=== PATIENT | male | born 1985 | race Caucasian/White ===

== ENCOUNTER 2016-11-19 21:26 | Emergency (ER) | payer SELFPAY ==
[2016-11-19 23:30] VITALS: BP 128/85
== END 2016-11-19 23:30 | disposition home or self-care (01) ==
LOC: ED 21:26
DX: J20.9 Acute bronchitis, unspecified (principal); R07.89 Other chest pain; F17.210 Nicotine dependence, cigarettes, uncomplicated
CPT/HCPCS: J1100; J1956; J7030; J7620

== ENCOUNTER 2017-04-30 15:21 | Emergency (ER) | payer SELFPAY | END 2017-04-30 18:22 | disposition other institution (70) | LOC: ED 15:21 | DX: Z02.89 Encounter for other administrative examinations (principal) | CPT/HCPCS: Q0162 ==

== ENCOUNTER 2017-04-30 15:21 | Emergency (ER) | payer OTHER ==
[~2017-04-30] VITALS: Ht 182.9 cm; Wt 77.1 kg
[2017-04-30 15:30] VITALS: Ht 182.9 cm; Wt 77.1 kg
[2017-04-30 18:24] VITALS: BP 111/61
== END 2017-04-30 18:22 | disposition other institution (70) ==
LOC: ED 15:21
DX: F11.23 Opioid dependence with withdrawal (principal)
CPT/HCPCS: Q0162